=== PATIENT | male | born 1975 | race African-American/Black ===

== ENCOUNTER 2020-01-26 14:56 | Emergency (ER) | payer OTHER | END 2020-01-26 15:40 | disposition left against medical advice (07) | LOC: ER 14:56 | DX: Z53.21 Procedure and treatment not carried out due to patient leaving prior to being seen by health care provider (principal) ==

== ENCOUNTER 2020-01-26 16:20 | Emergency (ER) | payer OTHER ==
[~2020-01-26] VITALS: Ht 172.7 cm; Wt 73.0 kg
[2020-01-26] MEDS ORDERED: TETRACAINE 0.5% OPHTH DROPS 4ML RIGHTEYE ONE (17:30)
[2020-01-26] MEDS ORDERED: FLUORESCEIN SODIUM 1MG/STRIP RIGHTEYE ONE (17:30)
[2020-01-26 18:53] VITALS: BP 160/98
== END 2020-01-26 18:54 | disposition home or self-care (01) ==
LOC: ER 16:20
DX: S05.01XA Injury of conjunctiva and corneal abrasion without foreign body, right eye, initial encounter (principal); X58.XXXA Exposure to other specified factors, initial encounter; Y93.89 Activity, other specified; Y92.89 Other specified places as the place of occurrence of the external cause
CPT/HCPCS: 99282; 99283